=== PATIENT | male | born 1950 | race Caucasian/White ===

== ENCOUNTER 2021-02-14 10:54 | Inpatient (IN) | payer MEDICARE ==
[2021-02-14] VITALS (13 sets, daily range): BP systolic 78–109; BP diastolic 43–66
[~2021-02-14] VITALS: Ht 180.3 cm; Wt 90.8 kg
[2021-02-14] MEDS ORDERED: SODIUM CHLORIDE 0.9% 1000ML 1,000 ML IV STA (11:17)
[2021-02-14 12:10] LABS: ABG HCO3 20 mmol/L (22-26); ABG PCO2 28 mmHg (35-45); ABG PH 7.46 (7.35-7.45); ABG PO2 62 mmHg (80-105); ABG TCO2 21
[2021-02-14 12:12] LABS: CLARITY,URINE SL CLOUDY (CLEAR); COLOR,URINE YELLOW (YELLOW); KETONES,URINE TRACE (NEGATIVE); LEUKOCYTE ESTERASE ,URINE NEGATIVE (NEGATIVE); NITRITE,URINE NEGATIVE (NEGATIVE); PROTEIN,URINE DIPSTICK NEGATIVE (NEGATIVE); URINE UROBILINOGEN 1 mg/dL (0.2 - 1)
[2021-02-14 12:17] LABS: BACTERIA,URINE FEW /HPF
[2021-02-14] MEDS ORDERED: PIPERACILLIN/TAZOBACTAM 3.375 GM in SODIUM CHLORIDE 0.9% 50ML 50 ML IV STA (13:57)
[2021-02-14] MEDS ORDERED: Vancomycin IV 1 GM in SODIUM CHLORIDE 0.9% 250ML 250 ML IV STA (14:23)
[2021-02-14 14:27] LABS: BASOPHILS % 0.1 % (0.0-1.0); EOSINOPHILS % 0.2 % (0.0-6.0); HEMATOCRIT 33.1 % (38.2-49.6); HEMOGLOBIN 10.2 g/dL (14.0-18.0); LYMPHOCYTES % 20.6 % (18.0-39.1); MEAN CORPUSCULAR HEMOGLOBIN 27.8 pg (28-32); MEAN CORPUSCULAR HGB CONC 30.8 g/dL (31-35); MEAN CORPUSCULAR VOLUME 90.2 fL (81-99); MONOCYTES # (AUTO) 0.9 (0.2-0.8); MONOCYTES % 6.3 % (4.4-11.3); NEUTROPHILS # (AUTO) 10.4 (2.1-6.9); PLATELET COUNT 93 x10e3/uL (140-360); RED BLOOD COUNT 3.67 x10e6/uL (4.3-5.7); RED CELL DISTRIBUTION WIDTH 23.5 % (11.7-14.4)
[2021-02-14 14:33] LABS: INR 1.88; PROTHROMBIN TIME 23.1 seconds (11.9-14.5)
[2021-02-14 14:34] LABS: PARTIAL THROMBOPLASTIN TIME 40.3 seconds (23.8-35.5)
[2021-02-14 14:42] LABS: ALBUMIN 1.5 g/dL (3.5-5.0); ALBUMIN/GLOBULIN RATIO 0.4 (0.8-2.0); ANION GAP 13.5 mmol/L (8-16); CALCIUM 8.2 mg/dL (8.4-10.2); CREATININE, SERUM 1.03 mg/dL (0.72-1.25); MAGNESIUM 2.1 MG/DL (1.3-2.1); POTASSIUM 4.5 mmol/L (3.5-5.1)
[2021-02-14 14:50] LABS: B-TYPE NATRIURETIC PEPTIDE2 48.2 pg/mL (0-100)
[2021-02-14 14:51] LABS: CREATINE KINASE MB 2.7 ng/mL (0-5.0)
[2021-02-14] MEDS ORDERED: SODIUM CHLORIDE 0.9% 1000ML 1,000 ML ONE (14:53)
[2021-02-14] MEDS ORDERED: SODIUM CHLORIDE 0.9% 1000ML 1,000 ML IV ONE (15:00)
[2021-02-14] MEDS ORDERED: ALBUTEROL SULF 0.083% NEB SOLN 3 ML NEB NEB PRN (15:15)
[2021-02-14] MEDS ORDERED: Vancomycin IV 1 GM in SODIUM CHLORIDE 0.9% 250ML 250 ML IV ONE (15:15)
[2021-02-14] MEDS ORDERED: ALBUMIN 25% 25GM 100ML 0.25 GM/ML BTL IV ONE ×2 (15:30→21:30)
[2021-02-14] MEDS ORDERED: ALBUMIN 25% 12.5GM 50ML 100 ML IV ONE (15:45)
[2021-02-14] MEDS ORDERED: FOLIC ACID0.4 MG PO (17:28)
[2021-02-14] MEDS ORDERED: FLOMAX0.4 MG PO (17:28)
[2021-02-14] MEDS ORDERED: FUROSEMIDE40 MG PO (17:29)
[2021-02-14] MEDS ORDERED: GABAPENTIN600 MG PO (17:30)
[2021-02-14] MEDS ORDERED: LACTULOSE20 GM/30 M PO (17:31)
[2021-02-14] MEDS ORDERED: MIDODRINE HCL5 MG PO (17:33)
[2021-02-14] MEDS ORDERED: MULTI-VITAMIN1 EACH PO (17:34)
[2021-02-14] MEDS ORDERED: NEOMYCIN SULFA500 MG PO (17:34)
[2021-02-14] MEDS ORDERED: VITAMIN B-1100 M1 PO (17:35)
[2021-02-14] MEDS ORDERED: ULTRAM50 MG PO (17:36)
[2021-02-14] MEDS ORDERED: CITRUCEL500 MG PO (17:37)
[2021-02-14] MEDS: FAMOTIDINE 20 MG/2 ML VIAL IV SCH (18:24)
[2021-02-14] MEDS ORDERED: SODIUM CHLORIDE 0.9% 250ML 250 ML ONE (21:05)
[2021-02-14] MEDS ORDERED: NOREPINEPHRINE 8 MG/D5W 250 ML 250 ML IV SCH (21:30)
[2021-02-14] MEDS: CEFEPIME 1 GM in SODIUM CHLORIDE 0.9% 50ML 50 ML IV SCH (21:30)
[2021-02-14] MEDS ORDERED: LACTATED RINGER'S 500 ML IV ONE (21:30)
[2021-02-14] MEDS ORDERED: NOREPINEPHRINE 8 MG/D5W 250 ML 250 ML IV PRN (22:15)
[2021-02-14] MEDS ORDERED: SODIUM CHLORIDE 0.9% 50ML 50 ML ONE (22:46)
[2021-02-14] MEDS ORDERED: IOPAMIDOL 370 MG/ML 200 ML INFUS..BTL INJ ONE (22:46)
[2021-02-15] VITALS (26 sets, daily range): BP systolic 32–122; BP diastolic 18–79
[2021-02-15] MEDS: MIDODRINE HCL 5 MG TABLET PO SCH ×3 (02:15→17:00)
[2021-02-15 03:53] LABS: % IRON SATURATION 40 % (15-50); IRON 71 ug/dL (65-175); TOTAL IRON BINDING CAPACITY 179 ug/dL (261-478); TRANSFERRIN 128 mg/dL (174-364)
[2021-02-15 04:52] LABS: BASOPHILS % 0.1 % (0.0-1.0); EOSINOPHILS % 0.2 % (0.0-6.0); HEMATOCRIT 27.5 % (38.2-49.6); HEMOGLOBIN 8.6 g/dL (14.0-18.0); LYMPHOCYTES # (AUTO) 2.4 (1.0-3.2); LYMPHOCYTES % 21.2 % (18.0-39.1); MEAN CORPUSCULAR HEMOGLOBIN 28.3 pg (28-32); MEAN CORPUSCULAR HGB CONC 31.3 g/dL (31-35); MEAN CORPUSCULAR VOLUME 90.5 fL (81-99); MONOCYTES # (AUTO) 0.6 (0.2-0.8); MONOCYTES % 5.3 % (4.4-11.3); NEUTROPHILS # (AUTO) 8.2 (2.1-6.9); NEUTROPHILS % 72.7 % (38.7-80.0); PLATELET COUNT 53 x10e3/uL (140-360); RED BLOOD COUNT 3.04 x10e6/uL (4.3-5.7); RED CELL DISTRIBUTION WIDTH 23.3 % (11.7-14.4)
[2021-02-15 05:12] LABS: ALBUMIN 2.2 g/dL (3.5-5.0); ALBUMIN/GLOBULIN RATIO 0.7 (0.8-2.0); CALCIUM 8.1 mg/dL (8.4-10.2); CREATININE, SERUM 1.01 mg/dL (0.72-1.25)
[2021-02-15] MEDS: CEFEPIME 1 GM in SODIUM CHLORIDE 0.9% 50ML 50 ML IV SCH ×3 (05:54→21:32)
[2021-02-15] MEDS ORDERED: LACTULOSE SYRUP 20 GM/30 ML UDC PO SCH ×2 (09:00→17:00)
[2021-02-15] MEDS: FAMOTIDINE 20 MG/2 ML VIAL IV SCH ×2 (09:19→15:59)
[2021-02-15 11:24] LABS: ABG HCO3 17 mmol/L (22-26); ABG PCO2 25 mmHg (35-45); ABG PH 7.44 (7.35-7.45); ABG PO2 51 mmHg (80-105)
[2021-02-15 11:25] LABS: ABG TCO2 18
[2021-02-15] MEDS ORDERED: LORAZEPAM INJ 2 MG/ML VIAL IV PRN (12:00)
[2021-02-15] MEDS ORDERED: FUROSEMIDE INJ 10 MG/ML 4 ML VIAL IV ONE (15:30)
[2021-02-15] MEDS: Morphine 2mg Syringe 2 MG/ML SYR IV PRN ×3 (17:24→21:32)
[2021-02-15] MEDS: LORAZEPAM INJ 2 MG/ML VIAL IV PRN ×3 (17:24→21:32)
== END 2021-02-16 01:59 | disposition expired | DRG 871 ==
LOC: ER 11:17 → ERHOLD 15:38 → ICU 17:03
PROVIDERS: ADMIT Internal Medicine; ATTEND Internal Medicine
PROC: 02HV33Z Insertion of Infusion Device into Superior Vena Cava, Percutaneous Approach (ICD-10-PCS; principal; 2021-02-14)
PROC: 5A09357 Assistance with Respiratory Ventilation, Less than 24 Consecutive Hours, Continuous Positive Airway Pressure (ICD-10-PCS; 2021-02-14)
DX: A41.9 Sepsis, unspecified organism (principal); G93.41 Metabolic encephalopathy; J69.0 Pneumonitis due to inhalation of food and vomit; I81 Portal vein thrombosis; J96.01 Acute respiratory failure with hypoxia; D68.4 Acquired coagulation factor deficiency; E87.4 Mixed disorder of acid-base balance; I85.10 Secondary esophageal varices without bleeding; E44.1 Mild protein-calorie malnutrition; I46.9 Cardiac arrest, cause unspecified; D69.59 Other secondary thrombocytopenia; I12.9 Hypertensive chronic kidney disease with stage 1 through stage 4 chronic kidney disease, or unspecified chronic kidney disease; N18.2 Chronic kidney disease, stage 2 (mild); M19.90 Unspecified osteoarthritis, unspecified site; C61 Malignant neoplasm of prostate; D63.8 Anemia in other chronic diseases classified elsewhere; D50.0 Iron deficiency anemia secondary to blood loss (chronic); E86.0 Dehydration; K70.30 Alcoholic cirrhosis of liver without ascites; F10.20 Alcohol dependence, uncomplicated; R16.1 Splenomegaly, not elsewhere classified; K70.40 Alcoholic hepatic failure without coma; Z68.27 Body mass index [BMI] 27.0-27.9, adult
CPT/HCPCS: 36415; 36555; 36600; 51700; 70450; 71045; 74018; 74177; 76705; 80053; 81001; 82140; 82550; 82553; 82607; 82746; 82805; 82948; 83540; 83605; 83735; 83880; 84466; 84484; 85025; 85045; 85610; 85730; 86850; 86900; 87040; 87086; 93005; 94799; 99284; J0456; J0692; J1940; J2060; J2270; J2543; J3370; J7030; J7050; J7121; P9047; Q9967; U0002